=== PATIENT | male | born 1960 ===

== ENCOUNTER 2023-12-09 08:16 | Emergency (ER) | payer OTHER ==
[~2023-12-09] VITALS: Ht 188 cm; Wt 112.5 kg
[2023-12-09] MEDS: LACTATED RINGERS 1000ML 1,000 ML IV ONE (08:46)
[2023-12-09 09:08] LABS: BASOPHILS # (AUTO) 0.02 K/uL (0.00-0.20); BASOPHILS % (AUTO) 0.4 % (0.0-5.0); EOSINOPHILS # (AUTO) 0.04 K/uL (0.00-0.70); EOSINOPHILS % (AUTO) 0.7 % (0.0-8.0); HEMATOCRIT 33.3 % (42-54); IMMATURE GRANULOCYTE ABSOLUTE 0.01 K/uL (0-1); LYMPHOCYTES % (AUTO) 17.9 % (21.0-51.0); MEAN CORPUSCULAR HEMOGLOBIN 27.4 pg (27.0-33.0); MEAN CORPUSCULAR VOLUME 82.8 fL (79-99); MONOCYTES # (AUTO) 0.6 K/uL (0.1-1.0); NEUTROPHILS # (AUTO) 3.7 K/uL (1.8-7.7); NEUTROPHILS % (AUTO) 69.8 % (40.0-77.0); PLATELET COUNT (AUTO) 147 K/uL (130-400); RED BLOOD CELL COUNT(AUTO) 4.02 MIL/uL (4.50-6.20); RED CELL DISTRIBUTION WIDTH 14.2 % (11.0-15.5); WHITE BLOOD COUNT (AUTO) 5.4 K/uL (4.8-10.8)
[2023-12-09 09:17] LABS: CREATININE 1.3 mg/dL (0.5-1.3); POTASSIUM 3.3 mmol/L (3.5-5.1)
[2023-12-09 09:26] LABS: BILIRUBIN,TOTAL 0.4 mg/dL (0.2-1.0)
[2023-12-09 13:00] LABS: APPEARANCE,URINE CLEAR (CLEAR); BILIRUBIN,URINE NEGATIVE (NEGATIVE); COLOR,URINE LIGHT-YELLOW (YELLOW); GLUCOSE, URINE (UA) NEGATIVE (NEGATIVE); KETONES,URINE NEGATIVE (NEGATIVE); LEUKOCYTE ESTERASE ,URINE NEGATIVE Leu/uL (NEGATIVE); NITRATE,URINE NEGATIVE (NEGATIVE); OCCULT BLOOD,URINE NEGATIVE (NEGATIVE); PROTEIN,URINE NEGATIVE (NEGATIVE); UROBILINOGEN,URINE 0.2 mg/dL (0.2-1.0)
[2023-12-09 13:05] LABS: ADD UA MICROSCOPIC NO
[2023-12-09 13:06] LABS: AMPHET/METH SCREEN,URINE NEGATIVE (NEGATIVE); BARBITURATE SCREEN, URINE NEGATIVE (NEGATIVE); BENZODIAZEPINES SCREEN,URINE NEGATIVE (NEGATIVE); CANNABINOID SCREEN,URINE NEGATIVE (NEGATIVE); COCAINE SCREEN,URINE NEGATIVE (NEGATIVE); OPIATE SCREEN,URINE NEGATIVE (NEGATIVE); PHENCYCLIDINE SCREEN,URINE NEGATIVE (NEGATIVE)
[2023-12-09] MEDS: KETOROLAC 15MG/ML VIAL (15MG/ML) IV ONE (13:56)
[2023-12-09] MEDS: LEVETIRACETAM 1,500 MG in 0.9%NACL 100ML 100 ML IV SCH (14:00)
[2023-12-09 22:00] VITALS: BP 119/68; PULSE 65; RESP 17; O2SAT 100
[2023-12-09] MEDS: DIAZEPAM 5 MG/ML 2 ML SYG IVP ONE (22:23)
[2023-12-09] MEDS: KETOROLAC 30MG VIAL (30MG/ML) IVP ONE (22:24)
[2023-12-09] MEDS: FAMOTIDINE 20MG VIAL IV ONE (22:24)
[2023-12-09] MEDS: METOCLOPRAMIDE 10 MG/2 ML VIAL IVP ONE (22:24)
== END 2023-12-09 22:33 | disposition short-term general hospital (02) ==
LOC: EEVIPCON 08:16 → EDH 08:16
DX: R56.9 Unspecified convulsions (principal); R55 Syncope and collapse; F41.9 Anxiety disorder, unspecified; F32.A Depression, unspecified; I10 Essential (primary) hypertension; E03.9 Hypothyroidism, unspecified
CPT/HCPCS: 99285; 70450; 96375; 96365; 96361; 71045; 80053; 80305; 85025; 36415; 72125; 96376; 93005; 81003; J7120; J3490; J1953; J3360; J1885 ×2; J2765